=== PATIENT | female | born 1935 | race Caucasian/White ===

== ENCOUNTER 2017-02-19 11:43 | Inpatient (IN) | payer MEDICARE, OTHER ==
[2017-02-19] VITALS (9 sets, daily range): BP systolic 78–187; BP diastolic 40–82
[~2017-02-19] VITALS: Ht 157.5 cm; Wt 61.4 kg
[~2017-02-19 11:43] MED LIST: B-1250 MCG PO; BENADRYL 50MG C50 MG OR; BETIMOL0.25 % OP; COMBIGAN0.2 MG/0.5 OU; DILANTIN100 MG OR; DOCUSATE CAL240 MG PO; DONEPEZIL10 MG PO; LAMOTRIGINE25 MG PO; LATANOPROST0.005 % OU; LEVOXYL50 MCG OR; LISINOPRIL10 MG PO; LISINOPRIL5 MG OR; LOPRESSOR50 MG OR; LUMIGAN0.03 % OP; MEDDOSEPAK OR; NAPROSYN500 MG PO; RESTASIS0.05 % OU; TYLENOL 500MG TAB PO; ZITHROMAX250 MG OR; ZITHROMAX250 MG PO
[2017-02-19 12:46] LABS: HEMOGLOBIN 13.1 g/dl (12.0-16.0); MEAN CELL VOLUME 99.5 fL CALC (80.0-100.0); MEAN CORPUSCULAR HGB 32.6 pG CALC (26.0-32.0); MEAN CORPUSCULAR HGB CONC 32.8 g/L CALC (32.0-36.0); RED BLOOD COUNT 4.02 mill/uL (4.20-5.60); RED CELL DISTRI WIDTH 12.3 % (11.5-15.5)
[2017-02-19 12:59] LABS: ALBUMIN 4.6 g/dL (3.2-5.0); ALKALINE PHOSPHATASE 60 u/l (38-126); ANION GAP 15 (6-22 (CALC)); BILIRUBIN, TOTAL 0.7 mg/dL (0.0-1.4); BUN 16 mg/dL (8-23); BUN/CREATININE RATIO 21 (12-20 (CALC)); CALCIUM 10.1 mg/dL (8.4-10.2); CARBON DIOXIDE 29 mmol/l (22-30); CHLORIDE 104 mmol/l (95-108); CREATININE 0.7 mg/dL (0.5-1.0); GFR > 60 ML/MIN (>=60 (CALC)); GFR FOR AFR.AMER. > 60 ML/MIN (>=60 (CALC)); GLUCOSE 98 mg/dL (82-115); POTASSIUM 4.4 mmol/l (3.5-5.1); SGOT/AST 24 u/l (9-36); SGPT/ALT 21 u/l (11-66); SODIUM 144 mmol/l (137-146); TOTAL PROTEIN 7.9 g/dL (6.3-8.2)
[2017-02-19] MEDS ORDERED: METO50TA52 PO (13:46)
[2017-02-19] MEDS ORDERED: AMLODIPINE10 MG PO (13:46)
[2017-02-19 14:22] LABS: URINE BILIRUBIN - DIPSTICK NEGATIVE (NEGATIVE); URINE BLOOD DIPSTICK TRACE-INTACT (NEGATIVE); URINE CLARITY CLEAR; URINE COLOR YELLOW; URINE GLUCOSE - DIPSTICK NEGATIVE (NEGATIVE); URINE KETONE NEGATIVE (NEGATIVE); URINE LEUK ESTERASE NEGATIVE (Negative); URINE NITRITE - DIPSTICK NEGATIVE (Negative); URINE PH 7.5 (4.5-8.0); URINE PROTEIN - DIPSTICK NEGATIVE (NEG-TRACE); URINE SPECIFIC GRAVITY 1.015; URINE UROBILINOGEN - DIPSTICK 0.2 E.U./dL (0.2)
[2017-02-20] VITALS (30 sets, daily range): BP systolic 79–210; BP diastolic 24–80
[2017-02-20 06:08] LABS: ALBUMIN 4.3 g/dL (3.2-5.0); ALKALINE PHOSPHATASE 58 u/l (38-126); ANION GAP 15 (6-22 (CALC)); BILIRUBIN, TOTAL 0.7 mg/dL (0.0-1.4); BUN 15 mg/dL (8-23); BUN/CREATININE RATIO 16 (12-20 (CALC)); CALCIUM 9.5 mg/dL (8.4-10.2); CARBON DIOXIDE 25 mmol/l (22-30); CHLORIDE 106 mmol/l (95-108); CREATININE 0.9 mg/dL (0.5-1.0); GFR 60 ML/MIN (>=60 (CALC)); GFR FOR AFR.AMER. > 60 ML/MIN (>=60 (CALC)); GLUCOSE 104 mg/dL (82-115); POTASSIUM 4.6 mmol/l (3.5-5.1); SGOT/AST 22 u/l (9-36); SGPT/ALT 21 u/l (11-66); SODIUM 142 mmol/l (137-146); TOTAL PROTEIN 7.2 g/dL (6.3-8.2)
[2017-02-21] VITALS (14 sets, daily range): BP systolic 96–189; BP diastolic 42–84
[2017-02-21 05:15] LABS: IMMATURE GRANULOCYTES 0.3 % (0.0-1.0); MEAN CELL VOLUME 97.7 fL CALC (80.0-100.0); MEAN CORPUSCULAR HGB 32.6 pG CALC (26.0-32.0); MEAN CORPUSCULAR HGB CONC 33.3 g/L CALC (32.0-36.0); NEUT# 4.85 thou/uL (2.00-7.15); RED BLOOD COUNT 4.3 mill/uL (4.20-5.60); RED CELL DISTRI WIDTH 12.1 % (11.5-15.5)
[2017-02-21 05:42] LABS: ANION GAP 15 (6-22 (CALC)); BUN 20 mg/dL (8-23); BUN/CREATININE RATIO 25 (12-20 (CALC)); CARBON DIOXIDE 27 mmol/l (22-30); CHLORIDE 102 mmol/l (95-108); CREATININE 0.8 mg/dL (0.5-1.0); GFR > 60 ML/MIN (>=60 (CALC)); GFR FOR AFR.AMER. > 60 ML/MIN (>=60 (CALC)); GLUCOSE 147 mg/dL (82-115); POTASSIUM 4.3 mmol/l (3.5-5.1); SODIUM 139 mmol/l (137-146)
[2017-02-22] VITALS: BP 106/44
[2017-02-22 04:00] VITALS: BP 91/34
[2017-02-22 06:00] VITALS: BP 142/62
[2017-02-22 06:57] LABS: CALCIUM 9.5 mg/dL (8.4-10.2); CREATININE 1.3 mg/dL (0.5-1.0); MAGNESIUM 2.1 mg/dL (1.6-2.3); POTASSIUM 4.9 mmol/l (3.5-5.1)
[2017-02-22 08:00] VITALS: BP 116/70
[2017-02-22 10:13] VITALS: BP 116/70
[2017-02-22] MEDS ORDERED: SEROQUEL XR50 MG PO (11:21)
== END 2017-02-22 12:50 | DRG 305 ==
LOC: ENPENDDIS → ICU 11:43 → MS2 11:43 → ICU 02-20 01:12
PROVIDERS: Internal Medicine; ADMIT Internal Medicine; ATTEND Internal Medicine
DX: I16.0 Hypertensive urgency (principal); N17.9 Acute kidney failure, unspecified; E87.0 Hyperosmolality and hypernatremia; G30.9 Alzheimer's disease, unspecified; F05 Delirium due to known physiological condition; F02.81 Dementia in other diseases classified elsewhere, unspecified severity, with behavioral disturbance; I10 Essential (primary) hypertension; G40.909 Epilepsy, unspecified, not intractable, without status epilepticus; H40.9 Unspecified glaucoma; Z85.3 Personal history of malignant neoplasm of breast
CPT/HCPCS: J1650; S0166

== ENCOUNTER 2017-02-22 21:19 | Emergency (ER) | payer MEDICARE, OTHER ==
[~2017-02-22] VITALS: Ht 157.5 cm; Wt 59.0 kg
[~2017-02-22 21:19] MED LIST changes: +AMLODIPINE10 MG PO; +METO50TA52 PO; +SEROQUEL XR50 MG PO
[2017-02-22 23:05] VITALS: BP 148/62
== END 2017-02-22 23:07 | disposition home or self-care (01) ==
LOC: ED 21:19
PROC: 0HQ0XZZ Repair Scalp Skin, External Approach (ICD-10-PCS; principal; 2017-02-22)
DX: S01.01XA Laceration without foreign body of scalp, initial encounter (principal); W10.8XXA Fall (on) (from) other stairs and steps, initial encounter; Y92.008 Other place in unspecified non-institutional (private) residence as the place of occurrence of the external cause